=== PATIENT | female | born 1985 | race American Indian/Alaskan Native ===

== ENCOUNTER 2019-04-07 09:06 | Inpatient (IN) | payer OTHER ==
[2019-04-07 10:01] LABS: Bilirubin,Urine NEG (Negative); Blood,Urine SM (Negative); Color,Urine Yellow (Yellow); Mucus,Urine 3+ /HPF
[2019-04-07 10:02] LABS: WBC,Urine > 182.0 /HPF (0.0-6.0)
[2019-04-07 10:06] LABS: Amphetamine Screen,Urine PRESUMPTIVE NEGATIVE; Benzodiazepines Screen,Urine PRESUMPTIVE NEGATIVE; Cannabinoid Screen,Urine PRESUMPTIVE NEGATIVE; Methadone Screen,Urine PRESUMPTIVE NEGATIVE; Opiate Screen,Urine PRESUMPTIVE NEGATIVE
[2019-04-07 10:34] LABS: Basophils % (Auto) 0.2 % (0.0-1.8); Eosinophils % (Auto) 0.1 % (0.0-4.3); Hematocrit 44.9 % (30.3-42.9); Hemoglobin 15.6 gm/dl (10.1-14.3); Lymphocytes # (Auto) 1.1 K/mm3 (1.2-5.4); Lymphocytes % (Auto) 16.4 % (13.4-35.0); Mean Corpuscular HGB Conc 35 % (30-34); Mean Corpuscular Volume 94 fl (79-97); Monocytes # (Auto) 0.6 K/mm3 (0.0-0.8); Platelet Count 107 K/mm3 (140-440); Red Blood Count 4.78 M/mm3 (3.65-5.03); Red Cell Distribution Width 15.4 % (13.2-15.2)
[2019-04-07] MEDS ORDERED: LORazepam 2 MG/ML VIAL IV PRN (11:33)
[2019-04-07] MEDS ORDERED: cefTRIAXone/NS 1 GM/50 ML 1 GM/50 ML BAG IV ONE (11:34)
[2019-04-07] MEDS ORDERED: ONDANSETRON 4 MG/2 ML INJ IV ONE (11:34)
--- NOTE | 2019-04-07 11:38 | Emergency Department Report ---
ED General Adult HPI - General Chief complaint: Alcohol Stated complaint: VOMIT 6DAYS Time Seen by Provider: 04/07/19 11:26 Source: patient Mode of arrival: Ambulatory Limitations: No Limitations - History of Present Illness Initial comments: Patient is a 34-year-old female with history of chronic alcohol abuse. Patient presented to the ER complaining of nausea and vomiting and dysuria with urinary frequency for the last 6 days. Patient stated that she has not been able to keep anything down. She stated that she usually drink alcohol daily. Patient stated that she started having shaking this morning so she took some alcohol but she vomited that. Patient stated that she is having visual hallucination. She denied having any seizure. Patient denied any fever or chills. Severity scale (0 -10): 9 - Related Data Allergies Allergy/AdvReac Type Severity Reaction Status Date / Time barley Allergy Swelling Verified 04/07/19 09:09 wheat Allergy Swelling Verified 04/07/19 09:09 gliadin Allergy Swelling Uncoded 04/07/19 09:09 rye Allergy Swelling Uncoded 04/07/19 09:09 ED Review of Systems ROS: Stated complaint: VOMIT 6DAYS Other details as noted in HPI Comment: All other systems reviewed and negative Constitutional: denies: chills, fever Respiratory: denies: cough, shortness of breath, SOB with exertion Cardiovascular: palpitations. denies: chest pain Gastrointestinal: nausea, vomiting. denies: abdominal pain, diarrhea, constipation, hematemesis, melena, hematochezia Genitourinary: urgency, dysuria, frequency. denies: discharge, abnormal menses Musculoskeletal: denies: back pain Neurological: denies: headache, weakness, numbness, paresthesias, confusion, abnormal gait Psychiatric: anxiety, visual hallucinations ED Past Medical Hx - Past Medical History Previous Medical History?: Yes Additional medical history: "bad liver" - Surgical History Past Surgical History?: No - Social History Smoking Status: Never Smoker Substance Use Type: Alcohol ED Physical Exam - General Limitations: No Limitations General appearance: alert, in no apparent distress, anxious - Head Head exam: Present: atraumatic, normocephalic, normal inspection - Eye Eye exam: Present: normal appearance - ENT ENT exam: Present: mucous membranes dry - Neck Neck exam: Present: normal inspection, full ROM. Absent: tenderness, meningismus, lymphadenopathy, thyromegaly - Respiratory Respiratory exam: Present: normal lung sounds bilaterally - Cardiovascular Cardiovascular Exam: Present: tachycardia - GI/Abdominal GI/Abdominal exam: Present: soft, normal bowel sounds. Absent: distended, tenderness, guarding, rebound, rigid, organomegaly, mass, bruit, pulsatile mass, hernia - Extremities Exam Extremities exam: Present: normal inspection, full ROM, normal capillary refill. Absent: tenderness, pedal edema, calf tenderness - Back Exam Back exam: Present: normal inspection, full ROM. Absent: CVA tenderness (R), CVA tenderness (L), muscle spasm, paraspinal tenderness, vertebral tenderness - Neurological Exam Neurological exam: Present: alert, oriented X3, CN II-XII intact, normal gait, reflexes normal - Psychiatric Psychiatric exam: Present: normal mood, anxious. Absent: agitated, manic, homicidal ideation, suicidal ideation - Skin Skin exam: Present: warm, intact, normal color ED Course Vital Signs 04/07/19 04/07/19 04/07/19 09:11 11:15 11:30 Temperature 98.4 F Pulse Rate 154 H 115 H Respiratory 18 18 18 Rate Blood Pressure 138/102 Blood Pressure 133/109 [Right] O2 Sat by Pulse 97 99 Oximetry ED Medical Decision Making - Lab Data Result diagrams: 04/07/19 09:51 04/07/19 11:46 - Medical Decision Making Patient is a 34-year-old female with history of chronic alcohol abuse. Patient presented to the ER complaining of nausea and vomiting and dysuria with urinary frequency for the last 6 days. Patient stated that she has not been able to keep anything down. She stated that she usually drink alcohol daily. Patient stated that she started having shaking this morning so she took some alcohol but she vomited that. Patient stated that she is having visual hallucination. She denied having any seizure. Patient denied any fever or chills. Patient CIWA score is 21, patient received 4 mg of IV Ativan. Patient also found to be hypokalemic with a potassium of 2.8, replaced with 20 mEq potassium chloride IV. Patient started on banana bag. Patient found to have a UTI treated with Rocephin 1 g IV. And discussed with Dr. Curtis, he agreed to admit the patient to medical service for further management. Critical Care Time: Yes Critical care time in (mins) excluding proc time.: 30 Critical care attestation.: If time is entered above; I have spent that time in minutes in the direct care of this critically ill patient, excluding procedure time. ED Disposition Clinical Impression: Alcohol withdrawal delirium, Vomiting, UTI (urinary tract infection) Disposition: OP ADMIT IP TO THIS HOSP Is pt being admited?: Yes Condition: Stable Referrals: PRIMARY CARE,MD [Primary Care Provider] - 3-5 Days
[2019-04-07] MEDS: LORazepam 2 MG/ML VIAL IV PRN ×2 (11:57→20:32)
[2019-04-07 12:21] LABS: BUN/Creatinine Ratio 7; Blood Urea Nitrogen 4 mg/dL (7-17); Calcium 8.3 mg/dL (8.4-10.2); Hemolysis Index 6
[2019-04-07] MEDS ORDERED: THIAMINE 100 MG, FOLIC ACID 1 MG, MULTIPLE VITAMIN INJ, ADULT 10 ML in SODIUM CHLORIDE ... IV ONE (12:34)
[2019-04-07] MEDS ORDERED: SODIUM CHLORIDE 0.9% 250ML 250 ML ONE (13:49)
[2019-04-07 14:11] LABS: Cocaine Screen,Urine PRESUMPTIVE POSITIVE
[2019-04-07] MEDS: POTASSIUM CHLORIDE 10 MEQ 10 MEQ/100 ML BAG IV SCH ×2 (14:27→15:25)
[2019-04-07] MEDS ORDERED: SODIUM CHLORIDE 0.9% 250ML 250 ML IV ONE (14:27)
[2019-04-07] MEDS ORDERED: POTASSIUM CHLORIDE 10 MEQ 10 MEQ/100 ML BAG IV ONE (15:18)
[2019-04-07] MEDS ORDERED: SODIUM CHLORIDE 0.9% 100 ML ONE (15:48)
[2019-04-07] MEDS ORDERED: ONDANSETRON 4 MG/2 ML INJ IV PRN (20:05)
[2019-04-07] MEDS ORDERED: oxyCODONE /ACETAMINOPHEN 5-325MG TAB PO PRN (20:05)
[2019-04-07] MEDS ORDERED: ACETAMINOPHEN 325 MG TAB PO PRN (20:05)
[2019-04-07] MEDS ORDERED: HYDROmorphone 1 MG/1 ML INJ IV PRN (20:05)
--- NOTE | 2019-04-07 20:05 | Event Note ---
Date: 04/07/19
[2019-04-07] MEDS: HEPARIN 5,000 UNIT/1 ML VIAL SUB-Q SCH (21:27)
[2019-04-07] MEDS: FAMOTIDINE 20 MG/2 ML INJ IV SCH (21:29)
[2019-04-07] MEDS: D5W/0.9% NACL 1,000 ML IV SCH (22:19)
[2019-04-08] MEDS: LORazepam 2 MG/ML VIAL IV PRN ×6 (00:18→21:22)
[2019-04-08 06:54] LABS: Basophils % (Auto) 0.7 % (0.0-1.8); Eosinophils % (Auto) 0.7 % (0.0-4.3); Hematocrit 36.4 % (30.3-42.9); Hemoglobin 12.4 gm/dl (10.1-14.3); Lymphocytes % (Auto) 20.8 % (13.4-35.0); Mean Corpuscular HGB Conc 34 % (30-34); Mean Corpuscular Volume 96 fl (79-97); Monocytes # (Auto) 0.6 K/mm3 (0.0-0.8); Monocytes % (Auto) 13.9 % (0.0-7.3)
[2019-04-08 06:54] LABS: Alanine Aminotransferase 67 units/L (7-56); Albumin 3.2 g/dL (3.9-5); Calcium 7.8 mg/dL (8.4-10.2); Hemolysis Index 33
[2019-04-08] MEDS: D5W/0.9% NACL 1,000 ML IV SCH ×2 (07:06→21:20)
[2019-04-08 07:11] LABS: BUN/Creatinine Ratio 2; Blood Urea Nitrogen 1 mg/dL (7-17)
[2019-04-08 07:20] LABS: Platelet Count 83 K/mm3 (140-440)
[2019-04-08] MEDS: FAMOTIDINE 20 MG/2 ML INJ IV SCH ×2 (09:08→21:22)
[2019-04-08] MEDS: HEPARIN 5,000 UNIT/1 ML VIAL SUB-Q SCH ×2 (09:08→21:21)
[2019-04-08] MEDS ORDERED: FLU VACC QUAD 2019-20 (3 YR UP)/PF 60 MCG/0.5 ML SYRINGE IM ONE (12:00)
[2019-04-08] MEDS: POTASSIUM CHLORIDE ER 20 MEQ TAB PO SCH ×2 (12:40→21:20)
[2019-04-08] MEDS: POTASSIUM CHLORIDE 10 MEQ 10 MEQ/100 ML BAG IV SCH ×4 (13:52→17:44)
--- NOTE | 2019-04-08 16:34 | History and Physical Report ---
History of Present Illness Date of examination: 04/07/19 Date of admission: 04/07/19 13:28 Chief complaint: N/v+Dysuria+Tremulousness History of present illness: Patient is a 34-year-old female with history of chronic alcohol abuse. Patient presented to the ER complaining of nausea and vomiting and dysuria with urinary frequency for the last 6 days. Patient stated that she has not been able to keep anything down. She stated that she usually drink alcohol daily. Patient stated that she started having shaking this morning so she took some alcohol but she vomited that. Patient stated that she is having visual hallucination. She denied having any seizure. Patient denied any fever or chills. Past Medical History Previous Medical History?: Yes Additional medical history: "bad liver" Surgical History Past Surgical History?: No Social History Smoking Status: Never Smoker Substance Use Type: Alcohol Family History Htn Review of Systems ROS: Stated complaint: VOMIT 6DAYS Other details as noted in HPI Comment: All other systems reviewed and negative Constitutional: denies: chills, fever Respiratory: denies: cough, shortness of breath, SOB with exertion Cardiovascular: palpitations. denies: chest pain Gastrointestinal: nausea, vomiting. denies: abdominal pain, diarrhea, constipation, hematemesis, melena, hematochezia Genitourinary: urgency, dysuria, frequency. denies: discharge, abnormal menses Musculoskeletal: denies: back pain Neurological: denies: headache, weakness, numbness, paresthesias, confusion, abnormal gait Psychiatric: anxiety, visual hallucinations Medications and Allergies Allergies Allergy/AdvReac Type Severity Reaction Status Date / Time barley Allergy Swelling Verified 04/07/19 09:09 wheat Allergy Swelling Verified 04/07/19 09:09 gliadin Allergy Swelling Uncoded 04/07/19 09:09 rye Allergy Swelling Uncoded 04/07/19 09:09 Home Medications Medication Instructions Recorded Confirmed Last Taken Type No Known Home Medications [No 04/07/19 04/07/19 Unknown History Reported Home Medications] Active Meds: Active Medications Acetaminophen (Tylenol) 650 mg PO Q4H PRN PRN Reason: Pain MILD(1-3)/Fever >100.5/CAR[place]O Last Admin: 04/07/19 20:32 Dose: 650 mg Documented by: Famotidine (Pepcid) 20 mg IV BID [facility] Last Admin: 04/08/19 09:08 Dose: 20 mg Documented by: Heparin Sodium (Porcine) (Heparin) 5,000 unit SUB-Q Q12HR [facility] Last Admin: 04/08/19 09:08 Dose: 5,000 unit Documented by: Hydromorphone HCl (Dilaudid) 0.5 mg IV Q3H PRN PRN Reason: Pain , Severe (7-10) Last Admin: 04/08/19 06:00 Dose: 0.5 mg Documented by: Dextrose/Sodium Chloride (D5ns) 1,000 mls @ 100 mls/hr IV DIRECT [facility] Last Admin: 04/08/19 07:06 Dose: 100 mls/hr Documented by: Lorazepam (Ativan) 2 mg IV Q1HR PRN PRN Reason: CIWA-Ar 8-15 Last Admin: 04/08/19 09:09 Dose: 2 mg Documented by: Lorazepam (Ativan) 4 mg IV Q1HR PRN PRN Reason: CIWA-Ar 16-25 Last Admin: 04/08/19 03:01 Dose: 4 mg Documented by: Lorazepam (Ativan) 4 mg IV Q15MIN PRN PRN Reason: CIWA-Ar >25 Ondansetron HCl (Zofran) 4 mg IV Q8H PRN PRN Reason: Nausea And Vomiting Oxycodone/Acetaminophen (Percocet 5/325) 1 tab PO Q6H PRN PRN Reason: Pain, Moderate (4-6) Potassium Chloride (K-Dur) 40 meq PO Q8H [facility] Stop: 04/09/19 04:01 Last Admin: 04/08/19 12:40 Dose: 40 meq Documented by: Sodium Chloride (Sodium Chloride Flush Syringe 10 Ml) 10 ml IV BID [facility] Last Admin: 04/08/19 10:00 Dose: 10 ml Documented by: Sodium Chloride (Sodium Chloride Flush Syringe 10 Ml) 10 ml IV PRN PRN PRN Reason: LINE FLUSH Exam - Constitutional Vitals: Temp Pulse Resp BP Pulse Ox 98.2 F 77 18 142/98 100 04/08/19 12:45 04/08/19 08:03 04/08/19 12:45 04/08/19 12:45 04/08/19 08:03 General appearance: Present: no acute distress, well-nourished - EENT Eyes: Present: PERRL ENT: hearing intact, clear oral mucosa - Neck Neck: Present: supple, normal ROM - Respiratory Respiratory effort: normal Respiratory: bilateral: CTA - Cardiovascular Heart rate: 78 Rhythm: regular Heart Sounds: Present: S1 & S2. Absent: rub, click - Extremities Extremities: no ischemia, pulses intact, pulses symmetrical, No edema Peripheral Pulses: within normal limits - Abdominal General gastrointestinal: Present: soft, non-tender, non-distended, normal bowel sounds Female genitourinary: Present: normal - Rectal Rectal Exam: deferred - Integumentary Integumentary: Present: clear, warm, dry - Musculoskeletal Musculoskeletal: gait normal, strength equal bilaterally - Psychiatric Psychiatric: appropriate mood/affect, intact judgment & insight - Neurologic Neurologic: CNII-XII intact, moves all extremities - Allied Health Allied health notes reviewed: nursing Results - Labs CBC & Chem 7: 04/08/19 Unknown 04/09/19 10:29 Labs: Laboratory Last Values WBC 4.7 K/mm3 (4.5-11.0) 04/08/19 Unknown RBC 3.80 M/mm3 (3.65-5.03) 04/08/19 Unknown Hgb 12.4 gm/dl (10.1-14.3) D 04/08/19 Unknown Hct 36.4 % (30.3-42.9) D 04/08/19 Unknown MCV 96 fl (79-97) 04/08/19 Unknown MCH 33 pg (28-32) H 04/08/19 Unknown MCHC 34 % (30-34) 04/08/19 Unknown RDW 15.0 % (13.2-15.2) 04/08/19 Unknown Plt Count 83 K/mm3 (140-440) L 04/08/19 Unknown Lymph % (Auto) 20.8 % (13.4-35.0) 04/08/19 Unknown [place] % (Auto) 13.9 % (0.0-7.3) H 04/08/19 Unknown Eos % (Auto) 0.7 % (0.0-4.3) 04/08/19 Unknown Baso % (Auto) 0.7 % (0.0-1.8) 04/08/19 Unknown Lymph # 1.0 K/mm3 (1.2-5.4) L 04/08/19 Unknown [place] # 0.6 K/mm3 (0.0-0.8) 04/08/19 Unknown Eos # 0.0 K/mm3 (0.0-0.4) 04/08/19 Unknown Baso # 0.0 K/mm3 (0.0-0.1) 04/08/19 Unknown Seg Neutrophils % 63.9 % (40.0-70.0) 04/08/19 Unknown Seg Neutrophils # 3.0 K/mm3 (1.8-7.7) 04/08/19 Unknown Sodium 139 mmol/L (137-145) D 04/08/19 04:00 Potassium 2.5 mmol/L (3.6-5.0) L* 04/08/19 04:00 Chloride 97.6 mmol/L (98-107) L 04/08/19 04:00 Carbon Dioxide 29 mmol/L (22-30) 04/08/19 04:00 Anion Gap 15 mmol/L 04/08/19 04:00 BUN 1 mg/dL (7-17) L 04/08/19 04:00 Creatinine 0.5 mg/dL (0.7-1.2) L 04/08/19 04:00 Estimated GFR > 60 ml/min 04/08/19 04:00 BUN/Creatinine Ratio 2 % 04/08/19 04:00 Glucose 137 mg/dL (65-100) H 04/08/19 04:00 Hemoglobin A1c 5.1 % (4-6) 04/07/19 20:45 Calcium 7.8 mg/dL (8.4-10.2) L 04/08/19 04:00 Phosphorus 2.10 mg/dL (2.5-4.5) L 04/07/19 20:45 Magnesium 1.60 mg/dL (1.7-2.3) L 04/07/19 20:45 Total Bilirubin 1.40 mg/dL (0.1-1.2) H 04/08/19 04:00 AST 167 units/L (5-40) H 04/08/19 04:00 ALT 67 units/L (7-56) H 04/08/19 04:00 Alkaline Phosphatase 103 units/L (35-129) 04/08/19 04:00 Total Protein 6.3 g/dL (6.3-8.2) 04/08/19 04:00 Albumin 3.2 g/dL (3.9-5) L 04/08/19 04:00 Albumin/Globulin Ratio 1.0 % 04/08/19 04:00 Amylase 147 units/L (27-131) H 04/07/19 20:45 Lipase 321 units/L (13-60) H 04/07/19 20:45 HCG, Qual Negative (Negative) 04/07/19 11:46 Urine Color Yellow (Yellow) 04/07/19 09:43 Urine Turbidity Turbid (Clear) 04/07/19 09:43 Urine pH 7.0 (5.0-7.0) 04/07/19 09:43 Ur Specific [place] 1.017 (1.003-1.030) 04/07/19 09:43 Urine Protein 100 mg/dl mg/dL (Negative) 04/07/19 09:43 Urine Glucose (UA) Neg mg/dL (Negative) 04/07/19 09:43 Urine Ketones Neg mg/dL (Negative) 04/07/19 09:43 Urine Blood Sm (Negative) 04/07/19 09:43 Urine Nitrite Pos (Negative) 04/07/19 09:43 Urine Bilirubin Neg (Negative) 04/07/19 09:43 Urine Urobilinogen 2.0 mg/dL (<2.0) 04/07/19 09:43 Ur Leukocyte Esterase Mod (Negative) 04/07/19 09:43 Urine WBC (Auto) > 182.0 /HPF (0.0-6.0) H 04/07/19 09:43 Urine RBC (Auto) 106.0 /HPF (0.0-6.0) 04/07/19 09:43 U Epithel Cells (Auto) 6.0 /HPF (0-13.0) 04/07/19 09:43 Urine Mucus 3+ /HPF 04/07/19 09:43 Salicylates < 0.3 mg/dL (2.8-20.0) L 04/07/19 11:46 Urine Opiates Screen Presumptive negative 04/07/19 09:43 Urine Methadone Screen Presumptive negative 04/07/19 09:43 Acetaminophen < 5.0 ug/mL (10.0-30.0) L 04/07/19 11:46 Ur Barbiturates Screen Presumptive negative 04/07/19 09:43 Ur Phencyclidine Scrn Presumptive negative 04/07/19 09:43 Ur Amphetamines Screen Presumptive negative 04/07/19 09:43 U Benzodiazepines Scrn Presumptive negative 04/07/19 09:43 Urine Cocaine Screen Presumptive positive 04/07/19 09:43 U Marijuana (THC) Screen Presumptive negative 04/07/19 09:43 Drugs of Abuse Note Disclamer 04/07/19 09:43 Plasma/Serum Alcohol < 0.01 % (0-0.07) 04/07/19 09:51 BMP 04/09/19 10:29 Sodium 143 Potassium 3.9 D Chloride 107.0 Carbon Dioxide 20 L D BUN 2 L Creatinine 0.5 L Glucose 90 Calcium 8.3 L Assessment and Plan Advance Directives: Yes (FC) VTE prophylaxis?: Chemical Plan of care discussed with patient/family: Yes - Patient Problems (1) Hypokalemia Current Visit: Yes Status: Acute Plan to address problem: Supplemented (2) Alcohol withdrawal delirium Current Visit: Yes Status: Acute (3) UTI (urinary tract infection) Current Visit: Yes Status: Acute Qualifiers: Urinary tract infection type: acute cystitis Plan to address problem: IV ABX (4) DVT prophylaxis Current Visit: Yes Status: Acute Plan to address problem: On Heparin and GI prophylaxis
--- NOTE | 2019-04-08 16:34 | Progress Note ---
Assessment and Plan Assessment and Plan Advance Directives: Yes (FC) VTE prophylaxis?: Chemical Plan of care discussed with patient/family: Yes - Patient Problems (1) Hypokalemia Current Visit: Yes Status: Acute Plan to address problem: Supplemented (2) Alcohol withdrawal delirium Current Visit: Yes Status: Acute (3) UTI (urinary tract infection) Current Visit: Yes Status: Acute Qualifiers: Urinary tract infection type: acute cystitis Plan to address problem: IV ABX (4) DVT prophylaxis Current Visit: Yes Status: Acute Plan to address problem: On Heparin and GI prophylaxis Subjective Date of service: 04/08/19 Principal diagnosis: Etoh dependence and UTI and Hypokalemia Interval history: Patient is a 34-year-old female with history of chronic alcohol abuse. Patient presented to the ER complaining of nausea and vomiting and dysuria with urinary frequency for the last 6 days. Patient stated that she has not been able to keep anything down. She stated that she usually drink alcohol daily. Patient stated that she started having shaking this morning so she took some alcohol but she vomited that. Patient stated that she is having visual hallucination. She denied having any seizure. Patient denied any fever or chills. Doing better Objective - Constitutional Vitals: Vital Signs - 12hr 04/08/19 04/08/19 08:03 12:45 Temperature 98.0 F 98.2 F Pulse Rate 77 Respiratory 18 18 Rate Blood Pressure 127/92 142/98 O2 Sat by Pulse 100 Oximetry General appearance: Present: no acute distress, well-nourished - EENT Eyes: PERRL, EOM intact ENT: hearing intact, clear oral mucosa Ears: bilateral: normal - Neck Neck: supple, normal ROM - Respiratory Respiratory effort: normal Respiratory: bilateral: CTA - Breasts Breasts: normal - Cardiovascular Rhythm: regular Heart Sounds: Present: S1 & S2. Absent: gallop, rub Extremities: pulses intact, No edema, normal color, Full ROM - Gastrointestinal General gastrointestinal: Present: soft, non-tender, non-distended, normal bowel sounds - Genitourinary Female genitourinary: normal - Integumentary Integumentary: clear, warm, dry - Musculoskeletal Musculoskeletal: 1, strength equal bilaterally - Neurologic Neurologic: moves all extremities - Psychiatric Psychiatric: memory intact, appropriate mood/affect, intact judgment & insight - Labs CBC & Chem 7: 04/08/19 Unknown 04/09/19 10:29 Labs: Abnormal lab results 04/07/19 04/08/19 04/08/19 Range/Units 20:45 04:00 Unknown MCH 33 H (28-32) pg Plt Count 83 L (140-440) K/mm3 [place] % (Auto) 13.9 H (0.0-7.3) % Lymph # 1.0 L (1.2-5.4) K/mm3 Potassium 2.5 L* (3.6-5.0) mmol/L Chloride 97.6 L (98-107) mmol/L BUN 1 L (7-17) mg/dL Creatinine 0.5 L (0.7-1.2) mg/dL Glucose 137 H (65-100) mg/dL Calcium 7.8 L (8.4-10.2) mg/dL Phosphorus 2.10 L (2.5-4.5) mg/dL Magnesium 1.60 L (1.7-2.3) mg/dL Total Bilirubin 1.40 H (0.1-1.2) mg/dL AST 167 H (5-40) units/L ALT 67 H (7-56) units/L Albumin 3.2 L (3.9-5) g/dL Amylase 147 H (27-131) units/L Lipase 321 H (13-60) units/L
[2019-04-09] MEDS ORDERED: hydrALAZINE 20 MG/1 ML INJ IV ONE (00:05)
[2019-04-09] MEDS: LORazepam 2 MG/ML VIAL IV PRN ×3 (00:16→06:43)
[2019-04-09] MEDS: POTASSIUM CHLORIDE ER 20 MEQ TAB PO SCH (02:59)
[2019-04-09] MEDS: D5W/0.9% NACL 1,000 ML IV SCH (06:44)
[2019-04-09] MEDS: FAMOTIDINE 20 MG/2 ML INJ IV SCH (09:50)
[2019-04-09] MEDS: HEPARIN 5,000 UNIT/1 ML VIAL SUB-Q SCH (09:50)
[2019-04-09] MEDS ORDERED: POTASSIUM CHLORIDE ER 20 MEQ TAB PO SCH (10:00)
[2019-04-09 12:36] LABS: BUN/Creatinine Ratio 4; Blood Urea Nitrogen 2 mg/dL (7-17); Calcium 8.3 mg/dL (8.4-10.2); Hemolysis Index 21
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
[2019-04-09 19:46] VITALS: BP 152/99
--- NOTE | 2019-04-09 19:56 | Discharge Summary ---
Providers - Providers Date of Admission: 04/07/19 13:28 Date of discharge: 04/09/19 Attending physician: TERELL HILARIO 04/08/19 09:15 Consult to Case Management [CONS] Routine Services Needed at Discharge: Other Notified:: no Primary care physician: ASSISTANT PROFESSOR [employer] GEOGR[employer]HY Hospitalization Condition: Stable Hospital course: (1) Hypokalemia Current Visit: Yes Status: Acute Plan to address problem: Supplemented (2) Alcohol withdrawal delirium Current Visit: Yes Status: Acute Improved D/c on Po Ativan Patient counselled (3) UTI (urinary tract infection) Current Visit: Yes Status: Acute Qualifiers: Urinary tract infection type: acute cystitis Plan to address problem: D/c on Macrobid (4)Transaminitis Mild to Moderate Counselled Disposition: - TO HOME OR SELFCARE Core Measure Documentation - Palliative Care Palliative Care/ Comfort Measures: Not Applicable - Core Measures Any of the following diagnoses?: none Exam - Constitutional Vitals: Temp Pulse Resp BP Pulse Ox 97.8 F 110 H 16 152/99 99 04/09/19 19:13 04/09/19 19:13 04/09/19 19:13 04/09/19 19:13 04/09/19 19:13 General appearance: Present: no acute distress, well-nourished - EENT Eyes: Present: PERRL ENT: hearing intact, clear oral mucosa - Neck Neck: Present: supple, normal ROM - Respiratory Respiratory effort: normal Respiratory: bilateral: CTA - Cardiovascular Heart rate: 78 Rhythm: regular Heart Sounds: Present: S1 & S2. Absent: rub, click - Extremities Extremities: pulses symmetrical, No edema Peripheral Pulses: within normal limits - Abdominal General gastrointestinal: Present: soft, non-tender, non-distended, normal bowel sounds Female genitourinary: Present: normal - Integumentary Integumentary: Present: clear, warm, dry - Musculoskeletal Musculoskeletal: gait normal, strength equal bilaterally - Psychiatric Psychiatric: appropriate mood/affect, intact judgment & insight - Neurologic Neurologic: CNII-XII intact, moves all extremities Plan Activity: no restrictions Diet: regular Follow up with: PRIMARY MD NICKY [Primary Care Provider] - 3-5 Days JENNIFER RUBIO MD [Staff Physician] - 7 Days
[2019-04-09] MEDS ORDERED: cefTRIAXone/NS 2 GM/100 ML 2 GM/100 ML BAG IV SCH (20:00)
[2019-04-09] MEDS ORDERED: VALPROIC ACID 250 MG CAP PO SCH (22:00)
[2019-04-09] MEDS ORDERED: traZODone 50 MG TAB PO SCH (22:00)
[2019-04-10] MEDS ORDERED: FLUoxetine 10 MG TAB PO SCH (10:00)
== END 2019-04-09 20:24 | disposition home or self-care (01) | DRG 690 ==
LOC: ED 09:06 → 4A 13:28
PROVIDERS: ADMIT Internal Medicine; ATTEND Internal Medicine
DX: N30.00 Acute cystitis without hematuria (principal); E87.6 Hypokalemia; R74.0 Nonspecific elevation of levels of transaminase and lactic acid dehydrogenase [LDH]; F31.9 Bipolar disorder, unspecified; Z91.018 Allergy to other foods; Z82.49 Family history of ischemic heart disease and other diseases of the circulatory system; F10.10 Alcohol abuse, uncomplicated; Y90.9 Presence of alcohol in blood, level not specified
CPT/HCPCS: 36415; 80048; 80053; 80307; 80320; 81001; 82150; 83036; 83690; 83735; 84100; 84703; 85025; 87040; 90686; G0378; G0480; J0360; J0696; J1170; J1644; J2060; J2405; J3411; J3480; J7030; J7042; J7050